=== PATIENT | male | born 1950 | race Caucasian/White ===

== ENCOUNTER 2018-09-06 20:50 | Emergency (ER) | payer MEDICARE, BC ==
--- NOTE | 2018-09-06 21:19 | EDM.PDOC ---
ED HPI GENERAL MEDICAL PROBLEM - General Stated Complaint: ILLNESS Time Seen by Provider: 09/06/18 21:00 Source of Information: Reports: Patient, EMS, Family History Limitations: Reports: No Limitations - History of Present Illness INITIAL COMMENTS - FREE TEXT/NARRATIVE: 68-year-old gentleman with metastatic lung cancer, recently had tumors removed from his lungs as well as his brain at [facility]. He also had a PE in his lungs and is on anticoagulation. He is scheduled to start chemotherapy on Friday. Last night he developed dark stools, weakness, and today developed bloody emesis. The ambulance was called and said there was a lot of blood in his home, he was woozy and appeared pale. Blood pressure was 96/60 and pulse was 84. Air care was called, to transfer him back to [facility] for continuity of care but he had to be brought to our ER first to get acceptance according to EMS. He is not complaining of pain currently is awake and alert but does appear pale. - Related Data Allergies Allergy/AdvReac Type Severity Reaction Status Date / Time No Known Allergies Allergy Verified 09/06/18 21:00 Home Meds: Home Meds Enoxaparin [Lovenox] 100 mg SUBCUT DAILY 09/06/18 [History] Folic Acid 1 tab PO DAILY 09/06/18 [History] Memantine HCl 10 mg PO BID 09/06/18 [History] Multivitamin [Multivitamins] 1 tab PO DAILY 09/06/18 [History] Past Medical History Oncologic (Cancer) History: Reports: Brain, Lung - Past Surgical History GI Surgical History: Reports: Appendectomy Social & Family History - Tobacco Use Smoking Status *Q: Never Smoker ED ROS GENERAL - Review of Systems Review Of Systems: See Below Constitutional: Denies: Fever Respiratory: Denies: Shortness of Breath GI/Abdominal: Reports: Abdominal Pain (A few cramping sensations but no significant pain), Hematemesis, Hematochezia Skin: Reports: Pallor Neurological: Reports: Syncope (Had a syncopal episode at home) ED EXAM, GENERAL - Physical Exam Exam: See Below Exam Limited By: No Limitations General Appearance: Alert, No Apparent Distress (Does not look distress. Looks very tired and weak) Eye Exam: Bilateral Eye: Other (Pale conjunctiva) Respiratory/Chest: No Respiratory Distress Cardiovascular: Regular Rate, Rhythm Extremities: No: Pedal Edema Neurological: Alert, Oriented Skin Exam: Cool, Pallor Course - Vital Signs Last Recorded V/S: Last Vital Signs Temp 96.7 F 09/06/18 21:08 Pulse 89 09/06/18 21:08 Resp 16 09/06/18 21:08 BP 102/63 09/06/18 21:08 Pulse Ox 99 09/06/18 21:08 - Re-Assessments/Exams Free Text/Narrative Re-Assessment/Exam: 09/06/18 21:18 Air care was already landing and waiting for the patient when he arrived to the ER. [facility] was called, and he was accepted for urgent transfer and it was felt by the accepting physician that the most appropriate place would be back to [facility] for continuity of care. Departure - Departure Time of Disposition: 21:43 Disposition: DC/Tfer to Other 70 Condition: Poor Clinical Impression: GI hemorrhage Qualifiers: GI bleed type/associated pathology: melena Qualified Code(s): K92.1 - Melena Hematemesis Qualifiers: Nausea presence: without nausea Qualified Code(s): K92.0 - Hematemesis Metastatic cancer to lung Qualifiers: Laterality: unspecified laterality Qualified Code(s): C78.00 - Secondary malignant neoplasm of unspecified lung - Discharge Information Referrals: PCP,None [Primary Care Provider] - Forms: ED Department Discharge Care Plan Goals: Patient was urgently transferred by air to [facility] for GI hemorrhage secondary to anticoagulation
== END 2018-09-06 21:10 | disposition other institution (70) ==
LOC: JP.ED 20:50
DX: K92.1 Melena (principal); K92.0 Hematemesis; C78.00 Secondary malignant neoplasm of unspecified lung
CPT/HCPCS: 99285

== ENCOUNTER 2019-04-22 12:32 | Emergency (ER) | payer MEDICARE, BC ==
[2019-04-22] MEDS ORDERED: Metoclopramide 10 MG/2 ML SDV IVPUSH ONE (13:52)
[2019-04-22] MEDS ORDERED: Lactated Ringers 1,000 ML IV ONE (13:52)
--- NOTE | 2019-04-22 13:56 | EDM.PDOC ---
ED HPI GENERAL MEDICAL PROBLEM - General Chief Complaint: General Stated Complaint: CANCER PT, WEEK Time Seen by Provider: 04/22/19 13:45 Source of Information: Reports: Patient, Family History Limitations: Reports: Other (no old records) - History of Present Illness INITIAL COMMENTS - FREE TEXT/NARRATIVE: 68 yo male with known metastatic lung CA presents with weakness, anorexia, and confusion. Is being tx'd in [place] at the [facility]. His primary is in [place] and they have not been following up with him since the CA dx was made. Reportedly feels sicker when he eats. Has Zofran at home that is not helping. Reports having dark urine. Hasn't eaten in a week. Cancer stopped responding to tx recently. No CALVILLO, seizures or syncope. Has brain mets that initially were "taken care of" at [place]. After his trop came back elevated he recalled that he had been having some recent mild anterior chest pains that started about 2 d ago. Onset: Gradual Onset Date: 04/15/19 Duration: Week(s): (1), Getting Worse Location: Reports: Generalized Quality: Reports: Other (no pain reported) Severity: Moderate Improves with: Reports: None Worsens with: Reports: Other (time) Context: Reports: Other (see HPI) Associated Symptoms: Reports: Confusion, Loss of Appetite, Malaise. Denies: Fever/Chills, Shortness of Breath Treatments [employer] SCI[employer]: Reports: Other (see below) (none) - Related Data Allergies Allergy/AdvReac Type Severity Reaction Status Date / Time No Known Allergies Allergy Verified 04/22/19 13:26 Home Meds: Home Meds Apixaban [Eliquis] 5 mg PO BID 04/22/19 [History] Morphine [MS Contin] 15 mg PO BID 04/22/19 [History] atorvaSTATin [Lipitor] 20 mg PO DAILY 04/22/19 [History] oxyCODONE 5 mg PO ASDIRECTED PRN 04/22/19 [History] Past Medical History Cardiovascular History: Reports: High Cholesterol Gastrointestinal History: Reports: Chronic Constipation Genitourinary History: Reports: Retention, Urinary Musculoskeletal History: Reports: None Hematologic History: Reports: Anticoagulation Therapy, Blood Transfusion(s) Oncologic (Cancer) History: Reports: Brain, Lung - Past Surgical History Head Surgeries/Procedures: Reports: None Cardiovascular Surgical History: Reports: None GI Surgical History: Reports: Appendectomy Musculoskeletal Surgical History: Reports: Other (See Below) Other Musculoskeletal Surgeries/Procedures:: left wrist Oncologic Surgical History: Reports: None Dermatological Surgical History: Reports: None Social & Family History - Tobacco Use Smoking Status *Q: Never Smoker Second Hand Smoke Exposure: No - Caffeine Use Caffeine Use: Reports: None - Recreational Drug Use Recreational Drug Use: No ED ROS GENERAL - Review of Systems Review Of Systems: See Below Constitutional: Reports: Malaise, Weakness, Decreased Appetite HEENT: Reports: No Symptoms Respiratory: Reports: No Symptoms Cardiovascular: Reports: No Symptoms GI/Abdominal: Reports: Anorexia, Decreased Appetite, Nausea. Denies: Vomiting : Reports: Other (dark urine) Musculoskeletal: Reports: No Symptoms Skin: Reports: No Symptoms Neurological: Reports: Confusion. Denies: Headache, Seizure, Syncope Psychiatric: Reports: No Symptoms ED EXAM, GENERAL - Physical Exam Exam: See Below Exam Limited By: No Limitations General Appearance: Alert, WD/WN, No Apparent Distress, Thin Eye Exam: Bilateral Eye: Normal Inspection Ears: Normal External Exam, Normal Canal, Hearing Grossly Normal, Normal TMs Ear Exam: Bilateral Ear: Auricle Normal, Canal Normal, TM normal Nose: Normal Inspection, Normal Mucosa, No Blood Throat/Mouth: Normal Inspection, Normal Lips, Normal Oropharynx, Normal Voice, No Airway Compromise Head: Atraumatic, Normocephalic Neck: Normal Inspection Respiratory/Chest: No Respiratory Distress, Lungs Clear, Normal Breath Sounds, No Accessory Muscle Use Cardiovascular: Regular Rate, Rhythm, No Edema GI/Abdominal: Normal Bowel Sounds, Soft, Non-Tender, No Distention Back Exam: Normal Inspection Extremities: Normal Inspection, Normal Range of Motion, Non-Tender, No Pedal Edema Neurological: Alert, Oriented, CN II-XII Intact, Normal Cognition, No Motor/ Sensory Deficits Psychiatric: Normal Affect, Normal Mood Skin Exam: Warm, Dry, Intact, Normal Color, No Rash EKG INTERPRETATION EKG Date: 04/22/19 Time: 14:35 Rhythm: NSR (paced rhythm) Rate (Beats/Min): 65 [place]: Normal P-Wave: Present QRS: Normal ST-T: Normal QT: Normal Comparison: NA - No Prior EKG Course - Vital Signs Text/Narrative:: [facility] hospitalist called at 1500h, wants a PE study done here and if neg and patient still wants transfer to call back. Last Recorded V/S: Last Vital Signs Temp 35.5 C 04/22/19 13:31 Pulse 66 04/22/19 16:37 Resp 20 04/22/19 13:31 BP 105/65 04/22/19 16:37 Pulse Ox 94 L 04/22/19 16:37 - Orders/Labs/Meds Orders: Active Orders 24 hr Category Date Time Status Cardiac Monitoring [RC] .As Directed Care 04/22/19 14:35 Active EKG Documentation Completion [RC] ASDIRECTED Care 04/22/19 14:35 Active Iopamidol [Isovue-370 (76%)] Med 04/22/19 15:30 Active 100 ml IV . DIRECTED Sodium Chloride 0.9% [Normal Saline] 1,000 ml Med 04/22/19 15:30 Active IV ASDIRECTED Sodium Chloride 0.9% [Normal Saline] 100 ml Med 04/22/19 15:30 Active IV ASDIRECTED Sodium Chloride 0.9% [Saline Flush] Med 04/22/19 15:22 Active 10 ml FLUSH ASDIRECTED PRN EKG 12 Lead [EK] Routine Ther 04/22/19 14:35 Ordered Medication Orders Sodium Chloride (Normal Saline) 1,000 mls @ 150 mls/hr IV ASDIRECTED [facility] Last Admin: 04/22/19 15:22 Dose: 150 mls/hr Sodium Chloride (Normal Saline) 100 mls @ 3 mls/sec IV ASDIRECTED [facility] Last Admin: 04/22/19 15:46 Dose: 4 mls/sec Iopamidol (Isovue-370 (76%)) 100 ml IV . DIRECTED [facility] Last Admin: 04/22/19 15:46 Dose: 100 ml Sodium Chloride (Saline Flush) 10 ml FLUSH ASDIRECTED PRN PRN Reason: Keep Vein Open Last Admin: 04/22/19 15:46 Dose: 10 ml Labs: Laboratory Tests 04/22/19 04/22/19 04/22/19 Range/Units 14:04 14:04 14:04 WBC 7.9 (4.5-11.0) K/uL RBC 3.62 L (4.30-5.90) M/uL Hgb 11.1 L (12.0-15.0) g/dL Hct 32.3 L (40.0-54.0) % MCV 89 (80-98) fL MCH 31 (27-31) pg MCHC 34 (32-36) % Plt Count 244 (150-400) K/uL Sodium 129 L (140-148) mmol/L Potassium 4.7 (3.6-5.2) mmol/L Chloride 94 L (100-108) mmol/L Carbon Dioxide 27 (21-32) mmol/L Anion Gap 12.7 (5.0-14.0) mmol/L BUN 13 (7-18) mg/dL Creatinine 0.6 L (0.8-1.3) mg/dL Est Cr Clr Drug Dosing 101.01 mL/min Estimated GFR (MDRD) > 60 (>60) Glucose 102 (74-106) mg/dL Calcium 9.1 (8.5-10.1) mg/dL Magnesium 1.9 (1.8-2.4) mg/dL Total Bilirubin 0.6 (0.2-1.0) mg/dL AST 22 (15-37) U/L ALT 26 (12-78) U/L Alkaline Phosphatase 69 (46-116) U/L Troponin I 0.228 H* (0.000-0.056) ng/mL Total Protein 6.5 (6.4-8.2) g/dL Albumin 3.2 L (3.4-5.0) g/dL Globulin 3.3 (2.3-3.5) g/dL Albumin/Globulin Ratio 1.0 L (1.2-2.2) Urine Color Urine Appearance Urine pH (4.5-8.0) Ur Specific [place] (1.008-1.030) Urine Protein (NEGATIVE) mg/dL Urine Glucose (UA) (NEGATIVE) mg/dL Urine Ketones (NEGATIVE) mg/dL Urine Occult Blood (NEGATIVE) Urine Nitrite (NEGAITVE) Urine Bilirubin (NEGATIVE) Urine Urobilinogen (NORMAL) mg/dL Ur Leukocyte Esterase (NEGATIVE) Urine RBC (0-5) Urine WBC (0-5) Ur Epithelial Cells Amorphous Sediment Urine Bacteria Urine Mucus 04/22/19 Range/Units 14:22 WBC (4.5-11.0) K/uL RBC (4.30-5.90) M/uL Hgb (12.0-15.0) g/dL Hct (40.0-54.0) % MCV (80-98) fL MCH (27-31) pg MCHC (32-36) % Plt Count (150-400) K/uL Sodium (140-148) mmol/L Potassium (3.6-5.2) mmol/L Chloride (100-108) mmol/L Carbon Dioxide (21-32) mmol/L Anion Gap (5.0-14.0) mmol/L BUN (7-18) mg/dL Creatinine (0.8-1.3) mg/dL Est Cr Clr Drug Dosing mL/min Estimated GFR (MDRD) (>60) Glucose (74-106) mg/dL Calcium (8.5-10.1) mg/dL Magnesium (1.8-2.4) mg/dL Total Bilirubin (0.2-1.0) mg/dL AST (15-37) U/L ALT (12-78) U/L Alkaline Phosphatase (46-116) U/L Troponin I (0.000-0.056) ng/mL Total Protein (6.4-8.2) g/dL Albumin (3.4-5.0) g/dL Globulin (2.3-3.5) g/dL Albumin/Globulin Ratio (1.2-2.2) Urine Color Yellow Urine Appearance Slightly cloudy Urine pH 5.0 (4.5-8.0) Ur Specific [place] 1.015 (1.008-1.030) Urine Protein Negative (NEGATIVE) mg/dL Urine Glucose (UA) Normal (NEGATIVE) mg/dL Urine Ketones 50 H (NEGATIVE) mg/dL Urine Occult Blood Negative (NEGATIVE) Urine Nitrite Negative (NEGAITVE) Urine Bilirubin Negative (NEGATIVE) Urine Urobilinogen Normal (NORMAL) mg/dL Ur Leukocyte Esterase Negative (NEGATIVE) Urine RBC 0-5 (0-5) Urine WBC 0-5 (0-5) Ur Epithelial Cells Not seen Amorphous Sediment Few Urine Bacteria Not seen Urine Mucus Many Meds: Medications Generic Name Dose Route Start Last Admin Trade Name Freq PRN Reason Stop Dose Admin Sodium Chloride 1,000 mls @ 150 mls/hr 04/22/19 15:30 04/22/19 15:22 Normal Saline IV 150 mls/hr ASDIRECTED ARIANA Administration Sodium Chloride 100 mls @ 3 mls/sec 04/22/19 15:30 04/22/19 15:46 Normal Saline IV 4 mls/sec ASDIRECTED ARIANA Administration Iopamidol 100 ml 04/22/19 15:30 04/22/19 15:46 Isovue-370 (76%) IV 100 ml . DIRECTED ARIANA Administration Sodium Chloride 10 ml 04/22/19 15:22 04/22/19 15:46 Saline Flush FLUSH 10 ml ASDIRECTED PRN Administration Keep Vein Open Discontinued Medications Generic Name Dose Route Start Last Admin Trade Name Freq PRN Reason Stop Dose Admin Aspirin 324 mg 04/22/19 15:15 04/22/19 15:22 Aspirin PO 04/22/19 15:16 324 mg ONETIME ONE Administration Lactated Ringer's 1,000 mls @ 1,000 mls/hr 04/22/19 13:52 04/22/19 14:04 Ringers, Lactated IV 04/22/19 14:51 1,000 mls/hr BOLUS ONE Administration Metoclopramide HCl 10 mg 04/22/19 13:52 04/22/19 14:05 Reglan IVPUSH 04/22/19 13:53 10 mg ONETIME ONE Administration - Radiology Interpretation Free Text/Narrative:: CTA chest-no PE CT Results Date: 04/22/19 Departure - Departure Time of Disposition: 17:35 Disposition: DC/Tfer to Acute Hospital 02 Condition: Serious Clinical Impression: Elevated troponin I level - Discharge Information *PRESCRIPTION DRUG MONITORING PROGRAM REVIEWED*: No *COPY OF PRESCRIPTION DRUG MONITORING REPORT IN PATIENT CINDY: No Referrals: PCP,None [Primary Care Provider] - Forms: ED Department Discharge - My Orders Last 24 Hours: My Active Orders 04/22/19 14:35 Cardiac Monitoring [RC] .As Directed EKG Documentation Completion [RC] ASDIRECTED EKG 12 Lead [EK] Routine 04/22/19 15:22 Sodium Chloride 0.9% [Saline Flush] 10 ml FLUSH ASDIRECTED PRN 04/22/19 15:30 Iopamidol [Isovue-370 (76%)] 100 ml IV . DIRECTED Sodium Chloride 0.9% [Normal Saline] 1,000 ml IV ASDIRECTED Sodium Chloride 0.9% [Normal Saline] 100 ml IV ASDIRECTED - Assessment/Plan Last 24 Hours: My Active Orders 04/22/19 14:35 Cardiac Monitoring [RC] .As Directed EKG Documentation Completion [RC] ASDIRECTED EKG 12 Lead [EK] Routine 04/22/19 15:22 Sodium Chloride 0.9% [Saline Flush] 10 ml FLUSH ASDIRECTED PRN 04/22/19 15:30 Iopamidol [Isovue-370 (76%)] 100 ml IV . DIRECTED Sodium Chloride 0.9% [Normal Saline] 1,000 ml IV ASDIRECTED Sodium Chloride 0.9% [Normal Saline] 100 ml IV ASDIRECTED
[2019-04-22] MEDS ORDERED: Aspirin 81 MG Tab.Chew PO ONE (15:15)
[2019-04-22] MEDS ORDERED: Sodium Chloride 0.9% 10 ML Syringe FLUSH PRN (15:22)
[2019-04-22] MEDS ORDERED: Iopamidol 755 Mg/ML 100 ML Bottle IV SCH (15:30)
[2019-04-22] MEDS ORDERED: Sodium Chloride 0.9% 100 ML IV SCH (15:30)
[2019-04-22] MEDS ORDERED: Sodium Chloride 0.9% 1,000 ML IV SCH (15:30)
--- NOTE | 2019-04-22 16:42 | CRLCT ---
INDICATION: Elevated troponin. Concern for pulmonary emboli. History of lung cancer. CT CHEST WITH CONTRAST TECHNIQUE: Multidetector CT imaging was performed through the chest following intravenous contrast administration using 100 mL Isovue 370. Coronal and sagittal reconstructions were generated. COMPARISON: None. FINDINGS: Lungs and airways: Spiculated 2.4 x 1.8 x 1.9 centimeter mass in the apical right upper lobe, with spiculations extending to the pleural surface and mild pleural thickening as well as a small amount of patchy infiltrate or atelectasis posterior to the lesion. Moderate bibasilar lower lobe lung stranding consistent with atelectasis. At least 2 small subcentimeter left lower lobe lung nodules, as on images [id number] of series 5. Pleura and pleural spaces: No pleural effusions or pneumothorax. Heart and mediastinum: Normal heart size. No significant pericardial effusion. Mildly enlarged subcarinal mediastinal lymph nodes measuring up to 2.6 x 3.0 centimeters, and a few borderline enlarged right paratracheal and precarinal nodes. Several slightly enlarged right hilar lymph nodes are also present. Vascular structures: No filling defects in the pulmonary arterial tree to suggest pulmonary emboli. Normal caliber aorta without evidence of dissection. Chest wall and axillae: No mass or axillary lymphadenopathy. Osseous structures: Mild spinal degenerative changes. No acute fractures identified. Small subcentimeter sclerotic focus in the superior endplate of T7 is favored to represent a bone island. Upper abdomen: Incompletely imaged thickening of the left adrenal without discrete nodule or mass. IMPRESSION: 1. No pulmonary emboli identified. 2. Spiculated 2.4 x 1.8 x 1.9 centimeter mass in the right upper lobe as detailed above, which may represent the patient`s known lung cancer. 3. Mild mediastinal and right hilar lymphadenopathy. 4. Small left lower lobe lung nodules. Pulmonary metastases are not excluded. Please note that all CT scans at this facility use dose modulation, iterative reconstruction, and\or weight-based dosing when appropriate to reduce radiation to as low as reasonably achievable. MARYAM OLSON MD [employer] Dictated by Russ Olson MD @ 04/22/2019 4:37:32 PM Dictated by: Russ Olson MD @ 04/22/2019 16:39:48 (Electronically Signed) [facility]
== END 2019-04-22 18:16 ==
LOC: JP.ED 12:32
DX: R79.89 Other specified abnormal findings of blood chemistry (principal); E78.00 Pure hypercholesterolemia, unspecified; Z79.01 Long term (current) use of anticoagulants; Z79.899 Other long term (current) drug therapy; Z85.841 Personal history of malignant neoplasm of brain; Z85.118 Personal history of other malignant neoplasm of bronchus and lung
CPT/HCPCS: 36415; 71275; 80053; 81001; 83735; 84484; 85027; 93005; 96361; 96374; 99285; A9270; J2765; J7030; J7120; Q9967; 93010